=== PATIENT | female | born 1945 | race Caucasian/White ===

== ENCOUNTER 2024-12-04 10:15 | Outpatient (CLI) | payer MEDICARE, OTHER | END 2024-12-04 10:16 | disposition home or self-care (01) | LOC: PET 10:15 | PROVIDERS: ATTEND Internal Medicine Hematology & Oncology | DX: C18.7 Malignant neoplasm of sigmoid colon (principal); E27.8 Other specified disorders of adrenal gland | CPT/HCPCS: 78815; A9552 ==

== ENCOUNTER 2024-12-29 08:29 | Day surgery (SDC) | payer MEDICARE, OTHER ==
[2024-12-29 08:45] LABS: #Basophils 0.05 10x3/uL (0.0-0.2); %Basophils 0.5 % (0.0-1.0); %Eosinophils 1.3 % (0.0-10.0); %Lymphocytes 20.6 % (21.0-51.0); %Monocytes 6.6 % (0.0-10.0); %Neutrophils 70.7 % (42.0-75.0); Hematocrit 43.6 % (36.0-47.0); Hemoglobin 14.2 g/dL (12.0-16.0); Mean Corpuscular HGB CONC 32.6 g/dL (32.0-36.0); Mean Corpuscular Hemoglobin 30.1 pg (27.0-31.0); Mean Corpuscular Volume 92.4 fL (78.0-98.0); Mean Platelet Volume 9.4 fL (7.4-10.4); Platelet Count 242 10x3/uL (130-400); RBC Distribution Width 13.5 % (11.5-14.5); Red Blood Cell (RBC) Count 4.72 mill/uL (4.20-5.40)
[2024-12-29 08:57] LABS: PTT 25.7 sec (22.9-36.1); Prothrombin Time 12.7 sec (12.0-14.7)
[2024-12-29] MEDS ORDERED: Lidocaine 1% w/Epinephrine 1:100K 20 ML VIAL ONE (08:57)
[2024-12-29] MEDS ORDERED: Sodium Bicarbonate 2.5 MEQ/5 ML SDV ONE (08:58)
[2024-12-29] MEDS ORDERED: Sodium Chloride 0.9% 500 ML ONE (08:58)
[2024-12-29 09:37] VITALS: BP 162/85; TEMP 97.6
[2024-12-29] MEDS ORDERED: fentaNYL 50 mcg/mL 1 mL Vial ONE ×2 (10:47→11:15)
[2024-12-29] MEDS ORDERED: Ondansetron PF 4 MG/2 ML Vial ONE (10:47)
[2024-12-29] MEDS ORDERED: Midazolam HCl 2 mg/2 ml Vial ONE (10:47)
[2024-12-29] MEDS ORDERED: CEFAZOLIN 1 GM VIAL ONE ×2 (10:47→11:34)
[2024-12-29] MEDS ORDERED: Lidocaine 1% (PF) 30 ML VIAL ONE (11:09)
[2024-12-29] MEDS ORDERED: FLU (Fluad Triv) TS24-25 (65UP)/MF59C/PF 45 MCG/0.5 ML Syringe IM ONE (14:00)
== END 2024-12-29 13:15 | disposition home or self-care (01) ==
LOC: SPEC 08:29
PROVIDERS: ATTEND Internal Medicine Hematology & Oncology
PROC: 0JH60WZ Insertion of Totally Implantable Vascular Access Device into Chest Subcutaneous Tissue and Fascia, Open Approach (ICD-10-PCS; principal; 2024-12-29)
DX: C18.7 Malignant neoplasm of sigmoid colon (principal); I10 Essential (primary) hypertension; E78.2 Mixed hyperlipidemia; Z85.42 Personal history of malignant neoplasm of other parts of uterus; Z79.890 Hormone replacement therapy; Z79.899 Other long term (current) drug therapy
CPT/HCPCS: 36561; 71045; 71046; 76937 ×2; 77001 ×2; 85025; 85610; 85730; C1788; J0690; J1642; J2250; J3010; J7030; 36415; 99152; 99153; J2405

== ENCOUNTER 2025-09-30 13:23 | Outpatient (CLI) | payer MEDICARE, OTHER | END 2025-09-30 13:24 | disposition home or self-care (01) | LOC: SCSMRI 13:23 | PROVIDERS: ATTEND Internal Medicine Hematology & Oncology | DX: C18.7 Malignant neoplasm of sigmoid colon (principal) | CPT/HCPCS: 74183 ==

== ENCOUNTER 2025-10-09 11:45 | Outpatient (CLI) | payer MEDICARE, OTHER | END 2025-10-09 11:46 | disposition home or self-care (01) | LOC: PET 11:45 | PROVIDERS: ATTEND Internal Medicine Hematology & Oncology | DX: C18.7 Malignant neoplasm of sigmoid colon (principal) | CPT/HCPCS: 78815; A9552 ==